=== PATIENT | male | born 1990 | race American Indian/Alaskan Native ===

== ENCOUNTER 2021-08-21 21:15 | Emergency (ER) | payer SELFPAY ==
[2021-08-21 21:23] VITALS: BP 143/97
[2021-08-21] MEDS ORDERED: LIDOCAINE (1%) 10 MG/1 ML VIAL 20 ML MDV INFILTRATI ONE (23:20)
[2021-08-21] MEDS ORDERED: IBUPROFEN 600 MG TAB PO ONE (23:20)
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
== END 2021-08-22 01:45 | disposition home or self-care (01) ==
LOC: ED 21:15
DX: S71.132A Puncture wound without foreign body, left thigh, initial encounter (principal); Z79.899 Other long term (current) drug therapy; W34.09XA Accidental discharge from other specified firearms, initial encounter; Y93.89 Activity, other specified; Y92.89 Other specified places as the place of occurrence of the external cause; Y99.8 Other external cause status
CPT/HCPCS: 99281